=== PATIENT | female | born 1950 | race Caucasian/White ===

== ENCOUNTER 2019-02-10 13:42 | Outpatient (REF) | payer MEDICARE, SELFPAY ==
[2019-02-10 21:14] LABS: ALT 18 U/L (12-78); AST 14 U/L (15-37); Albumin 3.6 g/dL (3.4-5.0); Alkaline Phosphatase 114 U/L (46-116); Anion Gap 7.1 mmol/L (3-11); BUN 13 mg/dL (7-18); Bilirubin, Total 0.5 mg/dL (0.2-1.0); CO2 29.9 mmol/L (21.0-32.0); CREATININE 0.62 mg/dL (0.55-1.02); Calcium 8.8 mg/dL (8.5-10.1); Chloride 100 mmol/L (98-107); Glucose 93 mg/dL (70-100); Potassium 4.3 mmol/L (3.5-5.1); Sodium 137 mmol/L (136-145); Total Protein 6.9 g/dL (6.4-8.2)
== END 2019-02-10 14:02 ==
LOC: NCHCN 13:42
PROVIDERS: PCP Internal Medicine; Visit Provider Registered Nurse
DX: I10 Essential (primary) hypertension (principal); F32.9 Major depressive disorder, single episode, unspecified
CPT/HCPCS: 80053

== ENCOUNTER 2019-04-12 12:51 | Outpatient (REF) | payer MEDICARE, SELFPAY ==
[2019-04-12 21:03] LABS: Bilirubin Negative (Negative); Blood Moderate (Negative); Clarity Cloudy; Glucose Negative (Negative); Ketones Negative (Negative); Leukocyte Esterase Moderate (Negative); Nitrite Negative (Negative); Urobilinogen 0.2 EU/dL (Up TO 0.2)
[2019-04-12 21:41] LABS: Bacteria Moderate HPF (Negative); C & S Indicated? Yes; Casts Negative LPF (Negative); Crystals Negative HPF (Negative); Epithelial Cells Few HPF (Negative); Mucus Negative (Negative); Other Cells Negative (Negative); RBC >50 (0-2); WBC >50 HPF (0-5)
== END 2019-04-12 13:11 ==
LOC: NCHCN 12:51
PROVIDERS: PCP Internal Medicine; Visit Provider Family Medicine
DX: R30.0 Dysuria (principal); R35.0 Frequency of micturition; N39.0 Urinary tract infection, site not specified
CPT/HCPCS: 81003; 81015; 87086

== ENCOUNTER 2019-07-21 11:09 | Outpatient (REF) | payer MEDICARE, SELFPAY ==
[2019-07-21 21:59] LABS: Abs Immature Grans 0.03 k/cumm (0.0-0.09); Absolute Basophil Count 0.03 k/cumm (0.0-0.2); Absolute Eosinophil Count 0.42 k/cumm (0.0-0.7); Absolute Lymphocyte Count 2.53 k/cumm (1.2-3.4); Absolute Monocyte Count 0.64 k/cumm (0.11-0.7); Absolute Neutrophil Count 4.22 k/cumm (1.2-6.7); Basophils % 0.4; Eosinophils % 5.3; HCT 45.5 % (36.0-46.0); HGB 14.7 g/dL (12.0-15.5); Immature Grans % 0.4; Lymphocytes % 32.1; Mean Corp. HGB Concentration 32.3 g/dL (32.0-36.0); Mean Corpuscular Hemoglobin 29.8 pg (27.0-33.0); Mean Corpuscular Volume 92.1 fL (80-95); Mean Platelet Volume 10.4 fL (8.0-11.0); Monocytes % 8.1; Neutrophils % 53.7; Platelet Count 361 x1000/uL (130-400); RBC 4.94 m/cumm (4.00-5.20); RBC Distribution Width 14.8 % (11.7-14.6); White Blood Cell Count 7.87 k/cumm (4.4-10.8)
[2019-07-21 22:42] LABS: TSH (W/Ref FT4) 0.89 uIU/mL (0.36-3.74); Vitamin B12 373 pg/mL (193-986)
[2019-07-22 05:17] LABS: Vitamin D 25 Total 14.2 ng/ml (30-100)
== END 2019-07-21 11:29 ==
LOC: NCHCN 11:09
PROVIDERS: PCP Nurse Practitioner Family; Visit Provider Nurse Practitioner Family
DX: F32.9 Major depressive disorder, single episode, unspecified (principal); F41.1 Generalized anxiety disorder; F51.05 Insomnia due to other mental disorder; E55.9 Vitamin D deficiency, unspecified
CPT/HCPCS: 82306; 82607; 84443; 85025

== ENCOUNTER 2019-12-08 11:22 | Outpatient (REF) | payer MEDICARE, SELFPAY ==
[2019-12-09 05:08] LABS: Vitamin D 25 Total 40.1 ng/ml (30-100)
== END 2019-12-08 11:42 ==
LOC: NCHCN 11:22
PROVIDERS: PCP Nurse Practitioner Family; Visit Provider Nurse Practitioner Family
DX: E55.9 Vitamin D deficiency, unspecified (principal)
CPT/HCPCS: 82306

== ENCOUNTER 2020-01-04 11:31 | Outpatient (REF) | payer MEDICARE, SELFPAY ==
[2020-01-04 21:45] LABS: ALT 18 U/L (14-59); AST 18 U/L (15-37); Albumin 3.8 g/dL (3.4-5.0); Alkaline Phosphatase 92 U/L (46-116); Anion Gap 8.8 mmol/L (3-11); BUN 11 mg/dL (7-18); Bilirubin, Total 0.4 mg/dL (0.2-1.0); CO2 29.2 mmol/L (21.0-32.0); CREATININE 0.63 mg/dL (0.55-1.02); Calcium 8.2 mg/dL (8.5-10.1); Calculated LDL 136 mg/dL (<100); Chloride 104 mmol/L (98-107); Cholesterol 224 mg/dL (<200); Glucose 101 mg/dL (74-106); HDL Cholesterol 65 mg/dL (40-60); Sodium 142 mmol/L (136-145); Total Protein 7.1 g/dL (6.4-8.2); Triglyceride 117 mg/dL (<150)
== END 2020-01-04 11:51 ==
LOC: NCHCN 11:31
PROVIDERS: PCP Nurse Practitioner Family; Visit Provider Nurse Practitioner Family
DX: I10 Essential (primary) hypertension (principal); Z13.6 Encounter for screening for cardiovascular disorders
CPT/HCPCS: 80053; 80061

== ENCOUNTER 2020-12-13 11:10 | Outpatient (REF) | payer MEDICARE, SELFPAY ==
[2020-12-13 14:14] LABS: HCT 45.2 % (36.0-46.0); MCH 30.1 pg (27.0-33.0); MCHC 33.2 % (32.0-36.0); MCV 90.6 fL (80-95); MPV 11.8 fL (8.0-11.0); Platelet Count 302 10^3/uL (130-400); RBC 4.99 10^6/uL (3.93-5.22); RDW 14.6 % (11.7-14.6); RDW-SD 47.8 fL; WBC 7.95 10^3/uL (4.4-10.8)
[2020-12-13 14:36] LABS: ALT 19 U/L (14-59); AST 23 U/L (15-37); Albumin 3.6 g/dL (3.4-5.0); Alkaline Phosphatase 88 U/L (46-116); Anion Gap 8.6 mmol/L (3-11); BUN 15 mg/dL (7-18); Bilirubin, Total 0.5 mg/dL (0.2-1.0); CO2 27.4 mmol/L (21.0-32.0); CREATININE 0.5 mg/dL (0.55-1.02); Calcium 9.1 mg/dL (8.5-10.1); Calculated LDL 128 mg/dL (<100); Chloride 104 mmol/L (98-107); Cholesterol 222 mg/dL (<200); Glucose 96 mg/dL (74-106); HDL Cholesterol 69 mg/dL (40-60); Potassium 4.1 mmol/L (3.5-5.1); Sodium 140 mmol/L (136-145); Triglyceride 126 mg/dL (<150)
[2020-12-14 04:58] LABS: Vitamin D 25 Total 21.2 ng/ml (30-100)
== END 2020-12-13 11:11 | disposition home or self-care (01) ==
LOC: NCHCN 11:10
PROVIDERS: PCP Nurse Practitioner Family; Visit Provider Nurse Practitioner Family
DX: I10 Essential (primary) hypertension (principal); E55.9 Vitamin D deficiency, unspecified
CPT/HCPCS: 80053; 80061; 82306; 85027

== ENCOUNTER 2021-04-25 15:19 | Outpatient (REF) | payer MEDICARE, SELFPAY ==
[2021-04-26 10:30] LABS: Vitamin D 25 Total 38.8 ng/mL (30-100)
[2021-04-27 11:12] LABS: Lyme Ab w Rflx to Lyme Confirm Negative (Negative)
[2021-04-28 01:13] LABS: Anaplasma phagocytophilum Negative (Negative); B. miyamotoi PCR Negative (Negative); Babesia divergens/MO-1 Negative (Negative); Babesia duncani Negative (Negative); Babesia microti Negative (Negative); Ehrlichia chaffeensis Negative (Negative); Ehrlichia ewingii/canis Negative (Negative); Ehrlichia muris eauclairensis Negative (Negative)
== END 2021-04-25 15:20 | disposition home or self-care (01) ==
LOC: NCHCN 15:19
PROVIDERS: PCP Nurse Practitioner Family; Visit Provider Nurse Practitioner Family
DX: E55.9 Vitamin D deficiency, unspecified (principal); Z91.89 Other specified personal risk factors, not elsewhere classified
CPT/HCPCS: 82306; 87798; 86618

== ENCOUNTER 2022-04-30 18:14 | Outpatient (REF) | payer MEDICARE, SELFPAY ==
[2022-04-30 21:09] LABS: Anion Gap 8.8 mmol/L (3-11); BUN 16 mg/dL (7-18); CO2 25.2 mmol/L (21.0-32.0); CREATININE 0.5 mg/dL (0.55-1.02); Calcium 8.9 mg/dL (8.5-10.1); Chloride 102 mmol/L (98-107); Glucose 86 mg/dL (74-106); Potassium 3.7 mmol/L (3.5-5.1); Sodium 136 mmol/L (136-145)
== END 2022-04-30 18:15 | disposition home or self-care (01) ==
LOC: NCHCN 18:14
PROVIDERS: PCP Nurse Practitioner Family; Visit Provider Nurse Practitioner Family
DX: I10 Essential (primary) hypertension (principal)
CPT/HCPCS: 80048

== ENCOUNTER 2023-06-02 14:16 | Outpatient (REF) | payer MEDICARE, SELFPAY ==
[2023-06-02 14:45] LABS: HGB 15.2 g/dL (11.2-15.7); MCH 29.3 pg (27.0-33.0); MCV 89 fL (80-95); MPV 10.1 fL (8.0-11.0); Platelet Count 419 10^3/uL (130-400); RBC 5.18 10^6/uL (3.93-5.22); RDW 14.5 % (11.7-14.6); RDW-SD 47.2 fL
[2023-06-02 15:28] LABS: ALT 12 U/L (14-59); AST 18 U/L (15-37); Albumin 3.5 g/dL (3.4-5.0); Alkaline Phosphatase 108 U/L (46-116); Anion Gap 6.5 mmol/L (3-11); BUN 16 mg/dL (7-18); Bilirubin, Total 0.4 mg/dL (0.2-1.0); CO2 31.5 mmol/L (21.0-32.0); CREATININE 0.7 mg/dL (0.55-1.02); Calcium 9.1 mg/dL (8.5-10.1); Calculated LDL 142 mg/dL (<100); Chloride 100 mmol/L (98-107); Cholesterol 239 mg/dL (<200); Estimated GFR 91.26 (mL/min/1.73m2); Glucose 97 mg/dL (74-106); HDL Cholesterol 75 mg/dL (40-60); Potassium 3.9 mmol/L (3.5-5.1); Sodium 138 mmol/L (136-145); Total Protein 7.5 g/dL (6.4-8.2); Triglyceride 110 mg/dL (<150)
== END 2023-06-02 14:17 | disposition home or self-care (01) ==
LOC: NCHCN 14:16
PROVIDERS: PCP Nurse Practitioner Family; Visit Provider Internal Medicine
DX: I10 Essential (primary) hypertension (principal); I25.10 Atherosclerotic heart disease of native coronary artery without angina pectoris
CPT/HCPCS: 80053; 80061; 85027

== ENCOUNTER 2023-06-06 21:17 | Outpatient (REF) | payer MEDICARE, SELFPAY ==
[2023-06-06 22:05] LABS: Vitamin D 25 Total 22.9 ng/mL (30-100)
[2023-06-06 22:08] LABS: Folate 11.2 ng/mL (8.6-20.0); Magnesium 1.8 mg/dL (1.8-2.4); TSH (W/Ref FT4) 0.32 uIU/mL (0.36-3.74); Vitamin B12 463 pg/mL (193-986)
== END 2023-06-06 21:18 | disposition home or self-care (01) ==
LOC: NCHCN 21:17
PROVIDERS: PCP Nurse Practitioner Family; Visit Provider Family Medicine
DX: E55.9 Vitamin D deficiency, unspecified (principal)
CPT/HCPCS: 82306; 82607; 82746; 83735; 84439; 84443

== ENCOUNTER 2025-05-26 10:27 | Outpatient (REF) | payer MEDICARE, SELFPAY ==
[2025-05-26 15:52] LABS: Anion Gap 8.8 mmol/L (3-11); BUN 24 mg/dL (7-18); CO2 30.2 mmol/L (21.0-32.0); Calcium 9.2 mg/dL (8.5-10.1); Calculated LDL 146 mg/dL (<100); Chloride 99 mmol/L (98-107); Cholesterol 246 mg/dL (<200); Estimated GFR 93.55 (mL/min/1.73m2); Glucose 103 mg/dL (74-106); HDL Cholesterol 81 mg/dL (>or=50); Potassium 3.6 mmol/L (3.5-5.1); Sodium 138 mmol/L (136-145); Triglyceride 98 mg/dL (<150)
== END 2025-05-26 10:28 | disposition home or self-care (01) ==
LOC: NCHCN 10:27
PROVIDERS: PCP Nurse Practitioner Family; Visit Provider Family Medicine
DX: I10 Essential (primary) hypertension (principal); E78.5 Hyperlipidemia, unspecified
CPT/HCPCS: 80048; 80061